=== PATIENT | female | born 1985 | race Caucasian/White ===

== ENCOUNTER 2021-07-02 10:51 | Emergency (ER) | payer OTHER ==
[~2021-07-02] VITALS: Ht 157.5 cm; Wt 83.0 kg
[2021-07-02 10:54] VITALS: BP_SYST 129
--- NOTE | 2021-07-02 10:54 | NUR ---
Placed in room 4 . Placed on stained glass painter, blood pressure machine and pulse oximeter. To gown for exam. Side rails up. Report given to CATHY Muñoz.
--- NOTE | 2021-07-02 11:00 | NUR ---
ER at bedside examining patient.
--- NOTE | 2021-07-02 11:10 | NUR ---
Pt BIBA with complaints of dizziness, COTTON and left arm pain / since 10am on 07/02/21. Pt states there was not trauma to the arm. CMS intact. Perrla, steady gait with no neuro defecits noted.
[2021-07-02] MEDS ORDERED: IBUPROFEN 600 MG TABLET PO ONE (11:15)
[2021-07-02 11:23] LABS: BASOPHILS % (AUTO) 0.4 % (0.0-2.0); EOSINOPHILS # (AUTO) 0.1 K/uL (0.0-0.4); EOSINOPHILS % (AUTO) 2.4 % (0.0-4.0); HEMATOCRIT 33.7 % (36-48); HEMOGLOBIN 11.3 g/dL (12.0-16.0); LYMPHOCYTES # (AUTO) 1.7 K/uL (1.0-5.5); LYMPHOCYTES % (AUTO) 35.1 % (20.5-51.5); MEAN CORPUSCULAR HEMOGLOBIN 25 pg (27-31); MEAN CORPUSCULAR HGB CONC 34 % (32-36); MEAN CORPUSCULAR VOLUME 75 fL (79.0-98.0); MONOCYTES # (AUTO) 0.3 K/uL (0.0-1.0); MONOCYTES % (AUTO) 6.6 % (1.7-9.3); NEUTROPHILS # (AUTO) 2.7 K/uL (1.8-7.7); NEUTROPHILS % (AUTO) 55.5 % (40.0-70.0); PLATELET COUNT (AUTO) 215 K/uL (130-430); RED CELL DISTRIBUTION WIDTH 14.1 % (9.0-15.0); WHITE BLOOD COUNT (AUTO) 4.9 K/uL (4.8-10.8)
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
[2021-07-02 11:35] LABS: CALCIUM 8.9 mg/dL (8.4-11.0); CREATININE 0.54 mg/dL (0.55-1.30); POTASSIUM 3.9 mmol/L (3.5-5.1)
[2021-07-02 11:41] LABS: ALBUMIN 3.1 g/dL (3.4-4.8); TOTAL BILIRUBIN 0.6 mg/dL (0.0-1.0)
[2021-07-02] MEDS ORDERED: NAPR-688 PO (11:54)
[2021-07-02 12:11] VITALS: BP_SYST 129
--- NOTE | 2021-07-02 12:12 | NUR ---
Patient given written and verbal discharge instructions and verbalizes understanding. ER MD discussed with patient the results and treatment provided. Patient in stable condition. ID arm band removed. IV catheter removed intact and dressing applied, no active bleeding. Rx of Naproxen given. Patient educated on pain management and to follow up with PMD. Pain Scale 0. Opportunity for questions provided and answered. Medication side effect fact sheet provided.
== END 2021-07-02 12:11 | disposition home or self-care (01) ==
LOC: SED 10:51
DX: S46.912A Strain of unspecified muscle, fascia and tendon at shoulder and upper arm level, left arm, initial encounter (principal); R42 Dizziness and giddiness; Z79.899 Other long term (current) drug therapy; X50.9XXA Other and unspecified overexertion or strenuous movements or postures, initial encounter; Y93.89 Activity, other specified; Y92.89 Other specified places as the place of occurrence of the external cause; Y99.8 Other external cause status
CPT/HCPCS: 36415; 80053; 84484; 85025; 93005; 99284